=== PATIENT | female | born 1985 | race African-American/Black ===

== ENCOUNTER 2021-11-06 00:13 | Emergency (ER) | payer SELFPAY ==
[~2021-11-06] VITALS: Ht 170.2 cm; Wt 68.0 kg
[2021-11-06] MEDS ORDERED: MORP15TA PO (01:26)
[2021-11-06] MEDS ORDERED: AMOX1TAB11 PO (01:26)
[2021-11-06] MEDS ORDERED: DICL50TA2 PO (01:26)
--- NOTE | 2021-11-06 01:26 | PHYS DOC ---
Adult General Chief Complaint Chief Complaint: DENTAL PROBLEM HPI HPI Patient is a 36 year old [f__sex] who presents with [] Review of Systems Review of Systems Constitutional: Denies fever or chills [] Eyes: Denies change in visual acuity, redness, or eye pain [] HENT: Denies nasal congestion or sore throat [] Respiratory: Denies cough or shortness of breath [] Cardiovascular: No additional information not addressed in HPI [] GI: Denies abdominal pain, nausea, vomiting, bloody stools or diarrhea [] : Denies dysuria or hematuria [] Musculoskeletal: Denies back pain or joint pain [] Integument: Denies rash or skin lesions [] Neurologic: Denies headache, focal weakness or sensory changes [] Endocrine: Denies polyuria or polydipsia [] All other systems were reviewed and found to be within normal limits, except as documented in this note. Physical Exam Physical Exam Constitutional: Well developed, well nourished, no acute distress, non-toxic appearance. [] HENT: Normocephalic, atraumatic, bilateral external ears normal, oropharynx moist, no oral exudates, nose normal. [] Eyes: PERRLA, EOMI, conjunctiva normal, no discharge. [] Neck: Normal range of motion, no tenderness, supple, no stridor. [] Cardiovascular:Heart rate regular rhythm, no murmur [] Lungs & Thorax: Bilateral breath sounds clear to auscultation [] Abdomen: Bowel sounds normal, soft, no tenderness, no masses, no pulsatile masses. [] Skin: Warm, dry, no erythema, no rash. [] Back: No tenderness, no CVA tenderness. [] Extremities: No tenderness, no cyanosis, no clubbing, ROM intact, no edema. [] Neurologic: Alert and oriented X 3, normal motor function, normal sensory function, no focal deficits noted. [] Psychologic: Affect normal, judgement normal, mood normal. [] EKG EKG [] Radiology/Procedures Radiology/Procedures [] Course & Med Decision Making Course & Med Decision Making Pertinent Labs and Imaging studies reviewed. (See chart for details) [] Dragon Disclaimer Dragon Disclaimer This electronic medical record was generated, in whole or in part, using a voice recognition dictation system. Departure Departure Impression: Primary Impression: Dental infection Disposition: HOME / SELF CARE / HOMELESS Condition: IMPROVED Patient Instructions: Dental Caries Additional Instructions: Follow-up very closely with your dentist in the next 2 to 4 days for a reevaluation of your symptoms and to discussion of next best steps in care. Your symptoms will likely not get all the way better until you have an opportunity to see the dentist. Drink plenty of fluids and get plenty of rest. Take a 50 mg diclofenac pill every 8 hours as needed for discomfort, with food to prevent stomach upset. For pain not well controlled with diclofenac you may take an oral morphine pill every 6 hours as needed. Be careful because oral morphine can make you sleepy so do not drive or work or operate machinery while taking it as we discussed. Take an Augmentin antibiotic pill twice a day as prescribed for the next 10 days to treat your dental infection. Return to the emergency department right away for worsening symptoms of any kind or with any other new symptoms of concern. Scripts Amoxicillin/Potassium Clav (AMOX TR-K CLV 875-125 MG TAB) 1 Each Tablet 1 TAB PO BID for 10 Days, #20 TAB Prov: TETO JAEGER MD 11/06/21 Morphine Sulfate (MORPHINE SULFATE) 15 Mg Tablet 1 TAB PO QID PRN for BREAKTHROUGH PAIN, #8 TAB Prov: TETO JAEGER MD 11/06/21 Diclofenac Potassium (DICLOFENAC POTASSIUM) 50 Mg Tablet 1 TAB PO PRN TID PRN for PAIN, #30 TAB Prov: TETO JAEGER MD 11/06/21 TETO JAEGER MD Nov 06, 2021 01:26
[2021-11-06] MEDS ORDERED: AMOXICILLIN/K CLAV 875/125MG TABLET. PO ONE (01:30)
[2021-11-06] MEDS ORDERED: NAPROXEN 250 MG TABLET PO ONE (01:30)
[2021-11-06] MEDS ORDERED: MORPHINE IR 15 MG TABLET PO ONE (01:30)
[2021-11-06 01:44] VITALS: BP 129/74
== END 2021-11-06 01:52 | disposition home or self-care (01) ==
LOC: ER 00:13
DX: K04.7 Periapical abscess without sinus (principal)
CPT/HCPCS: 99284